=== PATIENT | female | born 1955 | race Caucasian/White ===

== ENCOUNTER 2017-03-15 09:32 | Observation (INO) | payer BC ==
[2017-03-14 12:13] LABS: HEMATOCRIT 42.8 % (34.6-47.8); HEMOGLOBIN 14.4 g/dL (11.7-16.4)
[2017-03-14 12:27] LABS: BLOOD UREA NITROGEN 16 mg/dL (7-18)
[2017-03-14 12:33] LABS: ASPARTATE AMINO TRANSFERASE 12 U/L (15-37)
[~2017-03-15] VITALS: Ht 165.1 cm; Wt 53.8 kg
[~2017-03-15 09:32] MED LIST: AMLO2.5T2 PO; Biest PO; LEVO75TA PO; LOSA100T2 PO
[2017-03-15] MEDS ORDERED: LACTATED RINGERS 1,000 ML IV SCH (10:00)
[2017-03-15 10:01] VITALS: BP 124/80
[2017-03-15] MEDS ORDERED: OXYMETAZOLINE NASAL SPRAY 0.05%, 15ML ONE (12:44)
[2017-03-15] MEDS ORDERED: EPINEPHRINE 1 MG/ML, 1ML ONE (12:44)
[2017-03-15] MEDS ORDERED: NEO/POLY/HC EAR SUSP 10ML ONE (12:44)
[2017-03-15] MEDS ORDERED: NEO/BACI/POLY/HC OINT 15GM ONE (12:44)
[2017-03-15] MEDS ORDERED: LIDOCAINE/PF 1%, 30ML ONE (12:45)
[2017-03-15] MEDS ORDERED: BUPIVACAINE/PF-EPI 0.5% 1:200K ONE (12:45)
[2017-03-15] MEDS ORDERED: FENTANYL PF 250 MCG/5ML ONE (13:01)
[2017-03-15] MEDS ORDERED: MIDAZOLAM 1 MG/ML, 2ML ONE (13:01)
[2017-03-15] MEDS ORDERED: PROPOFOL 10 MG/ML, 20ML ONE (13:06)
[2017-03-15] MEDS ORDERED: ONDANSETRON 2MG/ML, 2ML ONE (13:06)
[2017-03-15] MEDS ORDERED: PHENYLEPHRINE 10 MG/ML ONE (13:06)
[2017-03-15] MEDS ORDERED: EPHEDRINE 50 MG/ML, 1ML ONE (13:06)
[2017-03-15] MEDS ORDERED: DEXAMETHASONE 4 MG/ML, 5ML ONE (13:06)
[2017-03-15] MEDS ORDERED: SUCCINYLCHOLINE 20 MG/ML, 10ML ONE (13:06)
[2017-03-15] MEDS ORDERED: CEFAZOLIN 1,000 MG ONE (13:06)
[2017-03-15] MEDS ORDERED: ROCURONIUM 10 MG/ML ONE (13:06)
[2017-03-15] MEDS ORDERED: GELFILM OPHTHALMIC DRESSING ONE (17:10)
[2017-03-15] MEDS ORDERED: CIPROFLOXACIN/HYDROCORTISONE EAR SUSP 0.2-1%, 10ML ONE (17:24)
[2017-03-15] MEDS ORDERED: CIPROFLOXACIN DEXAMETHASONE EAR SUSP 7.5ML ONE (17:24)
[2017-03-15] MEDS ORDERED: OFLOXACIN EAR DROPS 0.3%, 5ML ONE (17:37)
[2017-03-15] MEDS ORDERED: ACETAMINOPHEN 650 MG/20.3 ML UDC ONE (18:48)
[2017-03-15] MEDS ORDERED: FENTANYL PF 100 MCG/2ML ONE (18:49)
[2017-03-15] MEDS ORDERED: OXYcodone 5 MG/5 ML ORAL.SOL UDC ONE (18:49)
[2017-03-15] MEDS: FENTANYL PF 100 MCG/2ML IV PRN ×3 (18:51→19:24)
[2017-03-15] MEDS ORDERED: PROMETHAZINE 25 MG/ML, 1ML IV PRN (19:00)
[2017-03-15] MEDS ORDERED: EPHEDRINE 50 MG/ML, 1ML IVPush PRN (19:00)
[2017-03-15] MEDS ORDERED: MIDAZOLAM 1 MG/ML, 2ML IV PRN (19:00)
[2017-03-15] MEDS ORDERED: ONDANSETRON 2MG/ML, 2ML IVPush PRN ×2 (19:00→20:30)
[2017-03-15] MEDS ORDERED: HYDROmorphone 1 MG/ML, 1ML IV PRN (19:00)
[2017-03-15] MEDS ORDERED: OXYcodone 5 MG/5 ML ORAL.SOL UDC PO PRN (19:00)
[2017-03-15] MEDS ORDERED: MEPERIDINE/PF 25MG/0.5ML IVPush PRN (19:00)
[2017-03-15] MEDS ORDERED: HYDROcodone/APAP 7.5-325MG/15ML UDC PO PRN (19:00)
[2017-03-15] MEDS ORDERED: hydrALAzine 20 MG/ML, 1ML IV PRN (19:00)
[2017-03-15] MEDS ORDERED: LABETALOL 5MG/ML, 20ML IV PRN (19:00)
[2017-03-15] MEDS ORDERED: ACETAMINOPHEN 325 MG TABLET PO PRN (19:00)
[2017-03-15] MEDS ORDERED: KETOROLAC 30 MG/1 ML IV PRN (20:30)
[2017-03-15] MEDS ORDERED: HYDROmorphone 2 MG/ML, 1ML IV PRN (20:30)
[2017-03-15] MEDS ORDERED: DIPHENHYDRAMINE 50 MG/ML, 1ML IVPush PRN (20:30)
[2017-03-15] MEDS: IBUPROFEN 600 MG TABLET PO SCH (22:19)
[2017-03-15] MEDS: OXYcodone/APAP 10/325MG TABLET PO PRN ×2 (22:20→23:13)
[2017-03-16] MEDS ORDERED: CEFAZOLIN 1,000 MG IV SCH (01:00)
[2017-03-16] MEDS: CEFAZOLIN PMX 1GM/50ML 50 ML IV SCH ×2 (01:38→08:44)
[2017-03-16 02:01] VITALS: BP 105/76
[2017-03-16 04:55] VITALS: BP 99/61
[2017-03-16] MEDS: OXYcodone/APAP 10/325MG TABLET PO PRN (05:46)
[2017-03-16] MEDS: IBUPROFEN 600 MG TABLET PO SCH (05:46)
[2017-03-16 08:05] VITALS: BP 123/74
== END 2017-03-16 08:55 | disposition home or self-care (01) ==
LOC: OUT 09:32 → 4NOR 20:00 → OUT 21:53 → 4NOR 21:54 → DCLOUNGE 03-16 09:50
PROVIDERS: ADMIT Oral & Maxillofacial Surgery; ATTEND Oral & Maxillofacial Surgery
DX: M26.69 Other specified disorders of temporomandibular joint (principal); M26.621 Arthralgia of right temporomandibular joint; M26.631 Articular disc disorder of right temporomandibular joint; M19.90 Unspecified osteoarthritis, unspecified site; E03.9 Hypothyroidism, unspecified; R03.0 Elevated blood-pressure reading, without diagnosis of hypertension
CPT/HCPCS: 21240; 36415; 71020; 80053; 84703; 85025; 85610; 85730; 93005; 96365; G0378; J0330; J0690; J1100; J2250; J2370; J2405; J2704; J3010; J7120; J0171; J3490